=== PATIENT | female | born 1990 | race African-American/Black ===

== ENCOUNTER 2020-04-15 05:31 | Inpatient (IN) ==
[2020-04-15] MEDS ORDERED: FAMOTIDINE 20 MG/2 ML VIAL IV ONE (05:44)
[2020-04-15] MEDS ORDERED: CITRIC ACID/SODIUM CITRATE 30 ML UDCUP PO ONE (05:44)
[2020-04-15] MEDS ORDERED: ceFAZolin 3,000 MG in SYRINGE 1 EACH IV ONE (06:00)
[2020-04-15 06:05] LABS: Basophils # 0.1 10*3/uL (0.0-0.2); Basophils % 0.5 % (0.0-0.8); Eosinophils # 0.1 10*3/uL (0.0-0.87); Eosinophils % 0.6 % (0.00-10.9); Hematocrit 41.2 VOL% (35.7-47.0); Hemoglobin 13.4 GM/DL (12.0-16.0); Immature Granulocytes % 0.5 %; Immature Granulocytes Absolute 0.05 #; Lymphocytes # 1.4 10*3/uL (1.4-4.0); Lymphocytes % 14.2 % (21.3-54.2); Mean Corpuscular HGB Conc 32.5 GM/DL (32-36); Mean Corpuscular Volume 87.1 FL (87-102); Mean Platelet Volume 10.8 FL (9.6-12.0); Monocytes % 6.5 % (1.7-12.7); Neutrophils % 77.7 % (38.7-73.9); Platelet Count 264 T/CUMM (130-400); Red Blood Count 4.73 MC/CUMM (3.8-5.5); Red Cell Distribution Width 13.1 % (9.3-17.3); White Blood Count 9.6 T/CUMM (4-12)
[2020-04-15] MEDS ORDERED: miSOPROStoL 200 MCG TABLET ONE (06:56)
[2020-04-15] MEDS ORDERED: TRANEXAMIC ACID 1,000 MG/10 ML VIAL ONE (06:57)
[2020-04-15] MEDS ORDERED: OXYTOCIN/LR 20 UNIT/1,000 ML BAG IV ONE ×2 (06:57→08:33)
[2020-04-15] MEDS ORDERED: METHYLERGONOVINE 0.2 MG/1 ML AMP ONE (06:57)
[2020-04-15] MEDS ORDERED: BUPIVACAINE MPF 0.5% /EPI 30 ML VIAL ONE (06:57)
[2020-04-15] MEDS ORDERED: CARBOPROST TROMETHAMINE 250 MCG/ML AMP IM ONE (06:57)
[2020-04-15] MEDS ORDERED: BUPIVACAINE SPINAL 0.75% 2 ML AMP SPINAL ONE (06:57)
[2020-04-15] MEDS ORDERED: KETOROLAC 30 MG/1 ML VIAL ONE (06:58)
[2020-04-15] MEDS ORDERED: METOCLOPRAMIDE 10 MG/2 ML VIAL ONE (06:58)
[2020-04-15] MEDS ORDERED: ONDANSETRON 4 MG/2 ML VIAL ONE (06:58)
[2020-04-15] MEDS ORDERED: DEXAMETHASONE 4 MG/1 ML VIAL ONE (06:58)
[2020-04-15] MEDS ORDERED: LACTATED RINGERS 1,000 ML IV ONE (06:58)
[2020-04-15] MEDS ORDERED: MORPHINE 10 MG/10 ML VIAL ONE (06:58)
[2020-04-15] MEDS: LACTATED RINGERS 1,000 ML IV SCH (07:07)
[2020-04-15 08:26] LABS: Cord Venous Blood HCO3 22.7 MMOL/L; Cord Venous Blood PO2 38.3
[2020-04-15 08:29] LABS: Bilirubin,Urine Negative (Negative); Blood, Urine Negative (Negative); Glucose,Urine (UA) Negative (Negative); Ketones,Urine Negative (Negative); Nitrite,Urine Negative (Negative); Protein,Urine Negative; Urine Appearance CLEAR (Clear); Urine Color Colorless (Yellow); Urine Specific Gravity 1.005 (1.001-1.035); Urine Urobilinogen < 2.0 EU/DL (0.2-1.0)
[2020-04-15] MEDS ORDERED: BISACODYL 10 MG SUPP RECTAL PRN (08:33)
[2020-04-15] MEDS ORDERED: HYDROCORTISONE 2.5% RECTAL CREAM 30 GM TUBE TOP PRN (08:33)
[2020-04-15] MEDS ORDERED: WITCH HAZEL PADS 100/JAR TOP PRN (08:33)
[2020-04-15] MEDS ORDERED: ONDANSETRON 4 MG/2 ML VIAL IV PRN (08:33)
[2020-04-15] MEDS ORDERED: ACETAMINOPHEN 325 MG TABLET PO PRN (08:33)
[2020-04-15] MEDS ORDERED: RHO(D) IMMUNE GLOBULIN 300 MCG SYRINGE IM ONE (08:33)
[2020-04-15] MEDS ORDERED: BENZOCAINE 20%/MENTHOL 0.5% SPRAY 56 GM CAN TOP PRN (08:33)
[2020-04-15] MEDS ORDERED: LANOLIN 50% CREAM 0.3 OZ TUBE TOP PRN (08:33)
[2020-04-15] MEDS ORDERED: MEASLES/MUMPS/RUBELLA VACCINE 0.5 ML VIAL SUBCUT ONE (08:33)
[2020-04-15] MEDS ORDERED: DIPH/TET/ACEL PERT BOOSTER VACCINE 0.5 ML VIAL IM ONE (08:33)
[2020-04-15] MEDS: ceFAZolin 1,000 MG in SYRINGE 1 EACH IV SCH (20:02)
[2020-04-15] MEDS: DOCUSATE SODIUM 100 MG CAPSULE PO SCH (22:43)
[2020-04-16] MEDS: ceFAZolin 1,000 MG in SYRINGE 1 EACH IV SCH (04:04)
[2020-04-16 06:34] LABS: Basophils % 0.4 % (0.0-0.8); Eosinophils % 0.2 % (0.00-10.9); Hematocrit 33.9 VOL% (35.7-47.0); Hemoglobin 11.3 GM/DL (12.0-16.0); Immature Granulocytes % 0.4 %; Immature Granulocytes Absolute 0.05 #; Lymphocytes # 1.4 10*3/uL (1.4-4.0); Lymphocytes % 12.8 % (21.3-54.2); Mean Corpuscular HGB Conc 33.3 GM/DL (32-36); Mean Corpuscular Volume 85.8 FL (87-102); Monocytes % 5.8 % (1.7-12.7); Neutrophils % 80.4 % (38.7-73.9); Platelet Count 211 T/CUMM (130-400); Red Blood Count 3.95 MC/CUMM (3.8-5.5); Red Cell Distribution Width 13.1 % (9.3-17.3); White Blood Count 11.3 T/CUMM (4-12)
[2020-04-16] MEDS: DOCUSATE SODIUM 100 MG CAPSULE PO SCH ×2 (08:25→22:13)
[2020-04-16] MEDS: oxyCODONE/ACETAMINOPHEN 5-325 MG TABLET PO PRN ×3 (08:25→22:13)
[2020-04-16] MEDS: IBUPROFEN 800 MG TABLET PO PRN ×2 (12:14→22:13)
[2020-04-16] MEDS ORDERED: MAGNESIUM HYDROXIDE SUSP 30 ML UDCUP PO PRN (20:34)
[2020-04-17] MEDS: DOCUSATE SODIUM 100 MG CAPSULE PO SCH (08:21)
[2020-04-17] MEDS: oxyCODONE/ACETAMINOPHEN 5-325 MG TABLET PO PRN (08:22)
[2020-04-17 12:20] VITALS: BP 95/62
== END 2020-04-17 11:30 | disposition home or self-care (01) | DRG 787 ==
LOC: N.LDOUT 05:31 → N.LD 05:35 → N.OB 16:15
PROVIDERS: ADMIT Specialist; ATTEND Specialist
PROC: LDCSECT (ICD-10-PCS; 2020-04-15 07:30)